=== PATIENT | male | born 1960 | race Caucasian/White ===

== ENCOUNTER → 2016-11-22 | Outpatient (CLI) | payer OTHER, MEDICARE ==
[~2016-11-22] MED LIST: IOPAMIDOL (ISOVUE 370) 100 ML BTL IV ONE
--- NOTE | 2016-11-22 15:54 | CT ---
CT Angiogram Neck With Contrast and Multiplanar Reconstructions November 22, 2016 Indication: Left carotid bruit. Evaluate for carotid stenosis. Technique: 1.25 mm axial multidetector helical CT imaging was performed through the neck while 85 mL Isovue-370 were injected intravenously without complication. The images were then transferred to an independent workstation where multiplanar and three-dimensional reconstructions were performed by the interpreting physician and reviewed at multiple windows. Dose reduction techniques were utilized. Comparison: None. Findings CT Angiogram: The cervicothoracic aorta is normal caliber with mild calcified plaque giving rise to n ormal four-vessel neck anatomy. The origins of the common carotid arteries are widely patent with min imal bilateral ostial calcified atheroma. Right: Eccentric calcified plaque in the right carotid bulb extending into the origins of the international travel consultant al and external carotid arteries results in 20 to 30% stenosis of the carotid bulb and right internal carotid artery origin. Calcified plaque at origin of the right external carotid artery results in 50 to 70% stenosis. The distal right internal carotid artery is widely patent with moderate concentric calcified plaque in the cavernous segment. Left: Concentric calcified plaque in the carotid bulb results in 40 to 50% stenosis. Eccentric calcif ied plaque in the proximal left internal carotid artery results in 30 to 40% stenosis. The external c arotid artery is widely patent. The distal left internal carotid artery has moderate concentric calci fied plaque in the cavernous segment. Calcified plaque is present at the origins of bilateral vertebral arteries resulting in moderate degr ee of stenosis. The distal vertebral arteries are widely patent giving rise to normal-caliber basilar artery. The imaged portion of the intracranial arterial circulation is normal. Bilateral posterior communicat ing arteries are small in caliber. No aneurysm or filling defect. The intracranial venous system is normally opacified. The lung apices are clear except for mild diffuse peribronchial thickening. No pulmonary nodule or ly mphadenopathy. No enlarged lymph node or mass throughout the neck. Impression: 1. Mild to moderate stenosis of the left carotid bulb (40 to 50%) and mild stenosis of the proximal l eft internal carotid artery (30 to 40%). No hemodynamically significant stenosis of the left internal carotid artery. 2. Mild stenosis of the right carotid bulb and proximal right internal carotid artery due to calcifie d plaque. 3. Moderate stenosis bilateral vertebral artery origins. Measurement of carotid stenosis is based on the residual internal carotid diameter with [place] n Symptomatic Carotid Endarterectomy Trial (NASCET) based stenosis levels.
== END ==
LOC: FIMAGING 13:16
PROVIDERS: ATTEND Surgery
DX: I65.23 Occlusion and stenosis of bilateral carotid arteries (principal); I65.03 Occlusion and stenosis of bilateral vertebral arteries
CPT/HCPCS: 70498; Q9967

== ENCOUNTER 2016-12-10 06:09 | Observation (INO) | payer OTHER, MEDICARE ==
--- NOTE | 2016-12-06 09:04 | GHP ---
[f rep st] HISTORY AND PHYSICAL Amended report DATE OF ADMISSION: 12/10/2016 HISTORY OF PRESENT ILLNESS: Patient returns to our office after a 7-month hiatus for further discussion regarding his increased calcium and parathyroid hormone. Patient was seen in April of 2016, at which time it was recommended that he undergo parathyroidectomy. He also would like to discuss a recent ultrasound which demonstrated 50% to 75% left carotid stenosis. Patient has a complicated medical history, including chronic renal failure and diabetes. PAST MEDICAL HISTORY: End-stage renal disease, anemia of renal disease, type 2 diabetes, hypertension, coronary artery disease, status post stent placement, mitral valve regurgitation, hyperlipidemia. MEDICATIONS: Aranesp, Sensipar, Coreg, Lasix, Zocor, aspirin, vitamin D, EFFIENT, Humalog, lisinopril, Renvela. PAST SURGICAL HISTORY: Left internal jugular Palindrome catheter placement 2010. Toe amputation. SOCIAL HISTORY: Never a smoker. Occasional EtOH. ALLERGIES: No known drug allergies. REVIEW OF SYSTEMS: He had a negative 10 point review of systems. PHYSICAL EXAMINATION: GENERAL: Patient is a pleasant male, in no apparent distress. HEAD AND NECK: Bruit left side. CHEST: CTA bilaterally. HEART: Regular rhythm and rate. ABDOMEN: Soft, nontender. EXTREMITIES: No lower extremity edema. RADIOLOGY: CT angiogram demonstrates mild to moderate stenosis of the left internal carotid artery at 40% to 50%. Moderate stenosis of bilateral vertebral arteries. Ultrasound done in our office in April of 2016 did not demonstrate any definite adenoma. Laboratory studies from 2016 indicate an anemia with a hematocrit in the 24-27 range. Parathyroid hormone greater than 1000. IMPRESSION: 1. Hyperparathyroidism. 2. Left internal carotid stenosis, mild to moderate. RECOMMENDATION: Continued vigilance regarding the carotid stenosis. In regard to the hyperparathyroidism, Dr. Mo reviewed subtotal parathyroidectomy with the patient including risks of voice change, nerve injury resulting in difficulty swallowing, hematoma, seroma, permanent numbness and tingling over the neck and face. Patient elects to proceed with scheduling surgery for 2016. He should have laboratory studies including calcium, parathyroid hormone , CBC, basic metabolic panel upon admission; this will be placed on the order set. /[id number]/MODL Add acc#, 12/07/16, maria alejandra SELF
[~2016-12-10 06:09] MED LIST changes: -IOPAMIDOL (ISOVUE 370) 100 ML BTL IV ONE; +ceFAZolin 2 GM/DEXTROSE 100 ML IV ONE
[2016-12-10 07:06] LABS: INR 1.18 (0.83-1.16)
[2016-12-10] MEDS ORDERED: NS 500 ML IV ONE (07:06)
[2016-12-10] MEDS ORDERED: THROMBIN (RECOMBINANT) 5,000 UNIT VIAL TP ONE (07:10)
[2016-12-10] MEDS ORDERED: BUPIVACAINE/EPI 0.5% 30 ML SDV ONE (07:10)
[2016-12-10 07:13] LABS: ANION GAP 22 mEq/L (8-16); CALCIUM 10.4 mg/dL (8.5-10.4); CALCIUM 10.4 ng/dL (8.5-10.4); CARBON DIOXIDE 21 mEq/l (22-31); CHLORIDE 98 mEq/L (97-110); GLUCOSE 68 mg/dL (70-100); POTASSIUM 2.9 mEq/L (3.5-5.2); SODIUM 141 mEq/L (134-144)
[2016-12-10 07:24] LABS: GLOMERULAR FILTRATION RATE 3
[2016-12-10 07:29] LABS: CREATININE 14.7 mg/dL (0.7-1.3)
[2016-12-10] MEDS ORDERED: PROPOFOL/EMULSION 500 MG/50 ML BOTTLE IV ONE (07:40)
[2016-12-10] MEDS ORDERED: fentaNYL 100 MCG/2 ML INJ ONE ×2 (07:51→10:50)
[2016-12-10] MEDS ORDERED: MIDAZOLAM 2 MG/2 ML VIAL ONE (07:52)
[2016-12-10] MEDS ORDERED: PROPOFOL 200 MG/20 ML VIAL ONE (07:54)
[2016-12-10] MEDS ORDERED: REMIFENTANIL HCL 1 MG VIAL ONE (07:54)
[2016-12-10] MEDS ORDERED: CALCIUM GLUCONATE 10 GM in D5W 1,000 ML IV SCH (11:00)
[2016-12-10] MEDS ORDERED: ONDANSETRON 4 MG/2 ML VIAL IVP PRN (12:25)
[2016-12-10] MEDS ORDERED: HYDROCODONE/APAP 5/325 TAB PO PRN (12:25)
[2016-12-10] MEDS ORDERED: ALBUTEROL 60 PUFFS/8 GM MDI IH PRN (12:30)
--- NOTE | 2016-12-10 12:30 | POSTOPPROG ---
Post Op Note Date of Operation: 12/10/16 Surgeon: Adelaide Chacko [employer] Wafer Inspector: Adelaide Chacko Anesthesiologist: Baldemar Billings Anesthesia: GET(General Endotracheal) Pre-op Diagnosis: secondary hyperparathyroidism Post-op Diagnosis: same, and metastatic papillary thyroid CA Procedure: subtotal parathyroidectomy; total thyroidectomy, central LN bx Findings: 3 parathyroids confirmed by path; papillary CA in LN and thyroid Inf/Abcess present in the surg proc area at time of surgery?: No EBL: 50-100 Complications: none Specimen(s): multiple tissue biopsies including parathyroids to pathology. also, R and L lobes of thyroid
--- NOTE | 2016-12-10 13:04 | GCON ---
[f rep st] CONSULTATION NEPHROLOGY CONSULTATION DATE OF CONSULTATION: 12/10/2016 REASON FOR CONSULTATION: Management of end-stage renal disease, status post parathyroidectomy. HISTORY OF PRESENT ILLNESS: The patient is a very pleasant 56-year-old male with past medical history significant for end-stage renal disease secondary to diabetic nephropathy. He also has a history of coronary artery disease, hypertension, and peripheral vascular disease. The patient earlier this morning had undergone a thyroidectomy and 3/4 parathyroidectomy, due to tertiary hyperparathyroidism. His hyperparathyroidism was unable to be controlled medically, and he had overt hypercalcemia and markedly elevated PTH levels. His most recent level was approximately 1500. The patient is maintained on peritoneal dialysis. This modality has been working relatively well for him. The patient underwent a 3/4 parathyroidectomy earlier today. During the surgery , he had the incidental finding of a papillary thyroid cancer. Relating to this , the patient underwent a thyroidectomy at the same time of his parathyroidectomy. The patient was unaware of this problem, and was not having any clinical manifestations relating to it. Postoperatively, the patient is quite stable, and is conversing. As relating to these issues, we are asked by Dr. Mo to assist in the patient's renal diagnosis and management. PAST MEDICAL HISTORY: 1. End-stage renal disease, secondary to diabetes mellitus. The patient initiated dialysis June of 2011. He transitioned to peritoneal dialysis in March of 2012. He is not on the transplant list. 2. Type 2 diabetes, diagnosed in 1999, with a history of poor control. 3. Hypertension, with a history of poor control. 4. Coronary artery disease, status post stenting. 5. Moderate to severe mitral valve regurgitation. 6. Hyperlipidemia. 7. History of recurrent diabetic foot ulcers and osteomyelitis. SURGICAL HISTORY: Includes: 1. Left IJ Palindrome catheter placement 2010. 2. Toe amputation. 3. PD catheter placement. HOME MEDICATIONS: Coreg 25 mg twice daily, Lasix 80 mg twice daily, vitamin D 2000 units twice daily, Zocor 20 mg daily, aspirin 325 mg daily, Effient 10 mg daily, Humalog insulin subcutaneously as prescribed, LiquaCel daily, Renvela 800 mg three times daily, Fosrenol 2 tablets three times daily, Aranesp 60 mcg twice a month, omeprazole 20 mg twice daily, losartan 100 mg daily, Sensipar, not taking. FAMILY HISTORY: Noncontributory. SOCIAL HISTORY: The patient does not smoke cigarettes or drink alcohol. REVIEW OF SYSTEMS: The patient denies fevers, chills, headache, shortness of breath, chest pain or abdominal pain. His dialysis has been going well. Did not have any recent issues with lower extremity diabetic foot ulcers. He has not had lower extremity edema. PHYSICAL EXAMINATION: GENERAL: At time of exam, the patient is appropriate and alert. VITAL SIGNS: Temperature 37, pulse 63, blood pressure 139/78. HEENT: Eyes, sclerae clear. Oropharynx clear. NECK: The patient has a gauze bandage over his thyroid bed. It is clean and dry. LUNGS: Diminished breath sounds in the bases with a few rales in the right lower lobe. CARDIOVASCULAR: Regular rate and rhythm without gallops or rubs. ABDOMEN: Normoactive bowel sounds. Soft, PD catheter exit site looks good. /RECTAL: Deferred. EXTREMITIES: No lower extremity edema. INTEGUMENT: Generally clear. NEURO: The patient has a history of neuropathy. LABORATORY STUDIES: Sodium 141, potassium 2.9, bicarb 21, creatinine 14.7, PTH 756, phosphorus 9, calcium 10.4. IMPRESSION AND PLAN: 1. Status post three-quarter parathyroidectomy. Given the patient's very high PTH, I do expect the patient to have significant hungry bone syndrome. I have initiated a calcium drip. We will order q.4 hour ionized calcium, and also follow magnesium and phosphorus levels. The patient will be started on oral calcitriol, and will be transitioned to oral supplements as he becomes more stable. 2. End-stage renal disease. We will continue the patient's peritoneal dialysis on cycler at bedtime. 3. Incidental finding of thyroid cancer. Dr. Mo believes he obtained all the primary tumor. The patient will require referral to Endocrinology, and will also likely need radioiodinated thyroxine treatment. 4. Hypokalemia. This will be replaced and rechecked. As noted, we will also check a magnesium level. Thank you for allowing us to participate in this patient's care. We will continue following him closely with you. /[id number]/MODL MTDD
[2016-12-10] MEDS: POTASSIUM Cl (KCl) 100 ML IV SCH (15:10)
[2016-12-10 16:01] LABS: IONIZED CALCIUM 1.34 MMOL/L (1.12-1.30)
[2016-12-10 16:33] LABS: ALBUMIN 3.3 g/dL (3.5-5.0); ANION GAP 25 mEq/L (8-16); CALCIUM 10.5 mg/dL (8.5-10.4); CARBON DIOXIDE 17 mEq/l (22-31); CHLORIDE 97 mEq/L (97-110); GLUCOSE 105 mg/dL (70-100); POTASSIUM 3.2 mEq/L (3.5-5.2); SODIUM 139 mEq/L (134-144)
[2016-12-10 16:53] LABS: GLOMERULAR FILTRATION RATE 3
[2016-12-10 16:54] LABS: CREATININE 15.5 mg/dL (0.7-1.3)
[2016-12-10] MEDS ORDERED: LOSARTAN POTASSIUM 50 MG TAB ONE (17:23)
[2016-12-10] MEDS ORDERED: FUROSEMIDE 80 MG TAB ONE (17:24)
[2016-12-10] MEDS: LOSARTAN POTASSIUM 50 MG TAB PO SCH (17:25)
[2016-12-10] MEDS ORDERED: FUROSEMIDE 40 MG TAB ONE (17:27)
[2016-12-10] MEDS: FUROSEMIDE 40 MG TAB PO SCH (17:27)
[2016-12-10] MEDS: INSULIN LISPRO 100 UNIT/ML SC SCH (17:32)
[2016-12-10] MEDS ORDERED: LANTHANUM CARBONATE 1000 MG PO SCH (18:00)
[2016-12-10] MEDS ORDERED: POTASSIUM CL 10 MEQ TAB PO ONE (20:08)
[2016-12-10] MEDS ORDERED: INSULIN NPH HUMAN 100 UNITS/ML SYRINGE SC SCH (21:00)
[2016-12-10 21:03] LABS: IONIZED CALCIUM 1.24 MMOL/L (1.12-1.30)
[2016-12-10] MEDS: CALCITRIOL 0.25 MCG CAP PO SCH (21:05)
[2016-12-10] MEDS: CARVEDILOL 25 MG TAB PO SCH (21:05)
[2016-12-10] MEDS: SEVELAMER HCL 800 MG TAB PO SCH (21:05)
[2016-12-10] MEDS: GABAPENTIN 300 MG CAP PO SCH (21:06)
[2016-12-10] MEDS: LANTHANUM CARBONATE 1000 MG PO SCH (21:10)
[2016-12-11 00:43] LABS: IONIZED CALCIUM 1.25 MMOL/L (1.12-1.30)
[2016-12-11 05:11] LABS: IONIZED CALCIUM 1.22 MMOL/L (1.12-1.30)
[2016-12-11 05:13] LABS: HEMATOCRIT 27.7 % (40.0-51.0); HEMOGLOBIN 9.2 g/dL (13.7-17.5)
[2016-12-11 05:36] LABS: ANION GAP 24 mEq/L (8-16); CALCIUM 9.6 mg/dL (8.5-10.4); CARBON DIOXIDE 17 mEq/l (22-31); CHLORIDE 95 mEq/L (97-110); GLUCOSE 302 mg/dL (70-100); MAGNESIUM 1.9 mg/dL (1.6-2.3); POTASSIUM 3.2 mEq/L (3.5-5.2); SODIUM 136 mEq/L (134-144)
[2016-12-11 05:42] LABS: GLOMERULAR FILTRATION RATE 3
[2016-12-11 05:43] LABS: CREATININE 15.4 mg/dL (0.7-1.3)
[2016-12-11] MEDS ORDERED: LEVOTHYROXINE 100 MCG TAB PO SCH (06:00)
[2016-12-11] MEDS: INSULIN LISPRO 100 UNIT/ML SC SCH ×2 (08:35→12:06)
[2016-12-11] MEDS: LANTHANUM CARBONATE 1000 MG PO SCH (08:39)
[2016-12-11] MEDS: SEVELAMER HCL 800 MG TAB PO SCH (08:45)
--- NOTE | 2016-12-11 08:45 | SOAPPROG ---
SOAP Progress Note Assessment/Plan: Assessment: 56yo male s/p parathyroid, thyroidectomy, POD 1 no real pain, swallowing fine, no difficulty breathing PE eating breakfast hoarse voice ecchymosis on lower anterior neck, no significant discharge form incision chest CTA B/L Plan: d/c later this AM if labs ok and if ambulates well discussed post-op care with patient. 12/11/16 08:42 Objective: Vital Signs Temp Pulse Resp BP Pulse Ox 36.4 C 71 18 147/65 H 90 L 12/11/16 04:00 12/11/16 04:00 12/11/16 04:00 12/11/16 04:00 12/11/16 04:00 Laboratory Results 12/11/16 05:03 12/11/16 05:03 12/10/16 12/11/16 12/12/16 05:59 05:59 05:59 Intake Total 1938 Balance 193 PT 15.0 SEC (12.0-15.0) 12/10/16 06:45 INR 1.18 (0.83-1.16) H 12/10/16 06:45 ICD10 Worksheet Patient Problems: Problems Problem Status Diagnosed Idiopathic parathyroidism Acute - ICD10 Problem Qualifiers (1) Idiopathic parathyroidism
[2016-12-11] MEDS: CALCITRIOL 0.25 MCG CAP PO SCH (08:51)
[2016-12-11] MEDS: CARVEDILOL 25 MG TAB PO SCH (08:51)
[2016-12-11] MEDS: LOSARTAN POTASSIUM 50 MG TAB PO SCH (08:52)
[2016-12-11] MEDS: FUROSEMIDE 40 MG TAB PO SCH (08:56)
[2016-12-11] MEDS: GABAPENTIN 300 MG CAP PO SCH (08:58)
[2016-12-11] MEDS ORDERED: INSULIN GLARGINE 100 UNITS/ML SYRINGE SC SCH (09:00)
[2016-12-11] MEDS ORDERED: MONTELUKAST SODIUM 10 MG TAB PO SCH (09:00)
[2016-12-11] MEDS ORDERED: ASPIRIN 81 MG CHEWABLE TAB PO SCH (09:00)
[2016-12-11] MEDS ORDERED: ATORVASTATIN CALCIUM 10 MG TAB PO SCH (09:00)
[2016-12-11 09:14] VITALS: RESP 20
--- NOTE | 2016-12-11 11:40 | SOAPPROG ---
PIERO Progress Note Assessment/Plan: Assessment: 1. Tertiary hyperparathyroidism. S/p resection of 3/4 PTH glands. Complex surgery with incidental thyroidectomy for cancer. 4th gland not resected. PTH 1180 today. Can d/c Ca gtt, calcitriol. Pt has not been able to afford sensipar as outpatient. Will give time. Appears to have significant hormone production from remaining gland. 2. ESRD. Continue peritoneal dialysis nightly using cycler. 3. Hypokalemia. Replace. 4. Hyperphosphatemia. P>10. Increase renvela to 4 qac. 5. Acidosis. Add Na HCO3. 6. Anemia. Hgb 9.2. Aranesp per outpatient schedule. Plan: 12/11/16 11:37 12/11/16 11:40 12/11/16 11:41 Subjective: Slight difficulty swallowing but otherwise w/o complaints. Discussed case with Dr. Mo. Objective: Vital Signs Temp Pulse Resp BP Pulse Ox 37.1 C 71 20 141/70 H 95 12/11/16 08:00 12/11/16 08:51 12/11/16 08:00 12/11/16 08:52 12/11/16 08:00 Laboratory Results 12/11/16 05:03 12/11/16 05:03 12/10/16 12/11/16 12/12/16 05:59 05:59 05:59 Intake Total 1938 Balance 1938 PT 15.0 SEC (12.0-15.0) 12/10/16 06:45 INR 1.18 (0.83-1.16) H 12/10/16 06:45 In bed. Comfortable middle aged wm Neck bandaged, some bruising RRR, no m/g/r CTAB Abdom soft, nt No edema ICD10 Worksheet Patient Problems: Problems Problem Status Diagnosed Idiopathic parathyroidism Acute
[2016-12-11] MEDS ORDERED: POTASSIUM CL 20 MEQ/15 ML UDCUP PO ONE (11:43)
[2016-12-11 12:26] VITALS: BP 130/68; PULSE 68; TEMP 97.9; O2SAT 93
[2016-12-11 12:40] LABS: IONIZED CALCIUM 1.27 MMOL/L (1.12-1.30)
[2016-12-11 16:44] LABS: IONIZED CALCIUM 1.31 MMOL/L (1.12-1.30)
[2016-12-12] MEDS ORDERED: PRASUGREL HCL 10 MG TAB PO SCH (09:00)
--- NOTE | 2016-12-12 12:07 | GDS ---
[f rep st] DISCHARGE SUMMARY REASON FOR ADMISSION: Hyperparathyroidism. OTHER PERTINENT DIAGNOSES: Parathyroid surgery, end-stage renal disease, type 2 diabetes, hypertensi on, coronary artery disease, status post stent placement, hyperlipidemia. HOSPITAL COURSE: The patient is a pleasant male who had increased calcium and parathyroid hormone ov er the last year. He came into the hospital and had elective surgery with Dr. Mo on 12/10/2016, s ubtotal parathyroidectomy and total thyroidectomy and central lymph node biopsy. Three parathyroid g lands were removed and confirmed by pathology. Also of significance is papillary carcinoma in the lym ph node and thyroid gland. The patient was doing well the day after surgery and was discharged home with instructions to follow up with an venetian blind assembler and patient reported he had an appointment in less than 1 week. The patie nt had a normal calcium on the morning of discharge. His parathyroid gland hormone was still signifi cantly elevated, hopefully over time this will decrease. The patient was instructed to follow up in our office in approximately 7-10 days. It is okay for him to shower over the Steri-Strips. He had some mild ecchymosis over his mid cervical region, which I explained to him may move around a small amount, for example over his anterior chest. No heavy lifti ng for 6 weeks. If there are any questions, please contact Dr. Mo' office at . /[id number]/MODL
[2016-12-12] MEDS ORDERED: HEPARIN 5,000 UNIT/0.5 ML SYR SC SCH (14:00)
--- NOTE | 2016-12-23 14:27 | GOP ---
[f rep st] OPERATIVE REPORT DATE OF OPERATION: 12/10/2016 SURGEON: Cristopher oM MD POLICE CAPTAIN: ADAM Aguirre ANESTHESIOLOGIST: Dr. Billings PREOPERATIVE DIAGNOSIS: Secondary hyperparathyroidism. POSTOPERATIVE DIAGNOSIS: Secondary hyperparathyroidism, plus metastatic papillary cancer of the thyr oid. PROCEDURE PERFORMED: 1. Subtotal parathyroidectomy. 2. Total thyroidectomy. 3. Central compartment lymph node biopsies. FINDINGS: The patient was found to have a very large 945 mg adenoma on the left side of the thyroid which appeared to be 2 parathyroid glands fused together. On the right upper side, he was found to h ave a 600 mg parathyroid gland. No definite gland was found in the right lower portion. There were some central lymph nodes, which contained metastatic papillary cancer. There was a hard nodule in th e left lobe of the thyroid, which was consistent with papillary cancer. DESCRIPTION OF PROCEDURE: Patient taken to the operating room, where he received a satisfactory gene ral endotracheal anesthesia by Dr. Billings, placed in the supine position, and prepped and draped in t he usual sterile fashion. A low collar type incision was made and carried through the platysma. Continual platysmal flaps were developed to the thyroid cartilage and to the sternal notch. Strap muscles were in the mi dline and retracted laterally. The left lobe of the thyroid was rotated medially. Dissection was so mewhat difficult because of thickness and lack of flexibility of the left thyroid lobe. The parathyroid glands on the left side were identified. They appeared to be fused together. These were dissected free and removed with care to avoid injury to the recurrent laryngeal nerve, and sent out to Pathology to confirm that they were parathyroid adenomas. Attention was then turned to the right side of the thyroid, where what was thought to be a parathyroi d adenoma was identified at the upper pole position. A biopsy was sent out of that which was confirm ed to be hypercellular parathyroid, and that lesion was also removed using the Harmonic Scalpel with care to avoid injury to the recurrent laryngeal nerve. The inferior pole position nodule was removed , which was thought to be possibly parathyroid. That was sent for frozen and returned as lymph node with metastatic thyroid cancer. Some additional lymph nodes were dissected free from the thymic area in the central compartment and sent out to Pathology. A total thyroidectomy then ensued. The left lobe of the thyroid was rotated medially. It was dissec keyana away from the recurrent laryngeal nerve. The superior pole vessels were divided with the Harmoni c Scalpel and the lesion was dissected away from the trachea across the midline. It appeared to cont ain a hard nodule consistent with thyroid cancer. The isthmus was divided, and that specimen was sen t out to Pathology and confirmed to contain papillary cancer. The right lobe of the thyroid was then rotated medially and it too was carefully dissected away from the recurrent laryngeal nerve. The superior pole was divided with the Harmonic Scalpel, and that ent tammy lobe was removed and sent to Pathology. During this time, the PTH levels had dropped from 1500 d own to 800, but this did not feel like complete resolution of the secondary hyperparathyroidism probl em. However, because of the extensive dissection so far and the large amount of the tissue removed, we elected to stop looking for additional parathyroid at this time since his serum calciums were now normal. Hemostasis was fully obtained. The wound was irrigated. Topical thrombin was placed in the surgical bed. Strap muscles were approximated with a running 3-0 Vicryl suture and platysma was closed with a running 3-0 Vicryl suture, skin with a 4-0 Monocryl subcuticular stitch. He tolerated the procedure quite well. Blood loss was less than 50 cc. There were no complications. Final path reports were pending. /[id number]/MODL
== END 2016-12-11 17:09 | disposition home or self-care (01) ==
LOC: F3E 06:09
PROVIDERS: ADMIT Surgery; ATTEND Surgery
PROC: 0GBG0ZX Excision of Left Thyroid Gland Lobe, Open Approach, Diagnostic (ICD-10-PCS; principal; 2016-12-10 08:00)
PROC: 0GBQ0ZX Excision of Multiple Parathyroid Glands, Open Approach, Diagnostic (ICD-10-PCS; principal; 2016-12-10 08:00)
PROC: 07B10ZX Excision of Right Neck Lymphatic, Open Approach, Diagnostic (ICD-10-PCS; principal; 2016-12-10 08:00)
PROC: 0GBH0ZX Excision of Right Thyroid Gland Lobe, Open Approach, Diagnostic (ICD-10-PCS; principal; 2016-12-10 08:00)
DX: N25.81 Secondary hyperparathyroidism of renal origin (principal); C73 Malignant neoplasm of thyroid gland; C77.0 Secondary and unspecified malignant neoplasm of lymph nodes of head, face and neck; N18.6 End stage renal disease; I12.0 Hypertensive chronic kidney disease with stage 5 chronic kidney disease or end stage renal disease; E11.21 Type 2 diabetes mellitus with diabetic nephropathy; I25.10 Atherosclerotic heart disease of native coronary artery without angina pectoris; D63.1 Anemia in chronic kidney disease; I65.22 Occlusion and stenosis of left carotid artery; E87.6 Hypokalemia; E78.5 Hyperlipidemia, unspecified
CPT/HCPCS: 38510; 60240; 60500; J0610; J0690; J1815; J2250; J2704; J3010